=== PATIENT | female | born 1985 | race Caucasian/White ===

== ENCOUNTER 2017-12-04 19:22 | Emergency (ER) | payer BC ==
--- NOTE | 2017-12-04 20:03 | ED Physician Chart ---
ED Chief Complaint/HPI - Patient Information Date Seen:: 12/04/17 Time Seen:: 20:03 Chief Complaint:: Nausea, vomiting History of Present Illness:: 32 yo female , at gestation 6 weeks, LMP 10/22/17. Patient went to see PCP last week further confirmed positive . Patient developed nausea, vomiting and diarrhea for 3 days. Patient denied abdominal pain. Patient has anxiety on Prozac 10mg qd. Patient will have an appointment with [facility] in 1 week. Allergies:: Allergies Allergy/AdvReac Type Severity Reaction Status Date / Time No Known Allergies Allergy Verified 12/04/17 19:38 Vitals:: Vital Signs - 8 hr 12/04/17 19:30 Temp 98.8 F HR 83 RR 18 BP 114/72 O2 Sat % 97 ED Review of Systems - Review of Systems General/Constitutional: No fever, No chills Skin: No skin lesions Head: Headache Eyes: No pain Neck: No neck pain Cardio Vascular: No chest pain Pulmonary: No SOB GI: Nausea, Vomiting, Other (heart burn) [facility]: No vaginal discharge, No abnormal vaginal bleed Musculoskeletal: No bone or joint pain Psychiatric: Anxiety Neurological: No focal symptoms ED Past Medical History - Past Medical History Past Medical History: No significant medical hx Social History: Non Smoker, No Alcohol, No Drug Use Surgical History: None Psychiatricy History: Other (Anxiety) Family Medical History - Family Member Mother Ethnicity: Non- Living Status: Still Living Other Medical History: SKIN CANCER ED Physical Exam - Physical Examination General/Constitutional: Awake, Alert Head: Atraumatic Eyes: PERRL Skin: No ecchymosis ENMT: Nasal exam nl Neck: No nuchal rigidity Respiratory: No Wheeze/Rhonchi/Rales Cardio Vascular: RRR, No murmur, gallop, rubs, NL S1 S2 GI: No tenderness/rebounding/guarding Extremities: normal strength in all extremities Neuro/Psych: No focal deficits ED Labs/Radiology/EKG Results - Lab Results Results: Laboratory Last Values WBC 11.1 Th/cmm (4.8-10.8) H 12/04/17 20:25 RBC 4.97 Mil/cmm (3.80-5.10) 12/04/17 20:25 Hgb 14.7 gm/dL (12-16) 12/04/17 20:25 Hct 43.3 % (41.0-60) 12/04/17 20:25 MCV 87.0 fl (81-100) 12/04/17 20:25 MCH 29.5 pg (27.0-31.0) 12/04/17 20:25 MCHC Differential 33.9 pg (28.0-36.0) 12/04/17 20:25 RDW 13.2 % (11.5-20.0) 12/04/17 20:25 Plt Count 374 Th/cmm (150-400) 12/04/17 20:25 MPV 7.2 fl 12/04/17 20:25 Neutrophils % 76.9 % (40.0-80.0) 12/04/17 20:25 Lymphocytes % 16.7 % (20.0-50.0) L 12/04/17 20:25 Monocytes % 5.7 % (2.0-10.0) 12/04/17 20:25 Eosinophils % 0.4 % (0.0-5.0) 12/04/17 20:25 Basophils % 0.3 % (0.0-2.0) 12/04/17 20:25 Sodium 136 mEq/L (136-145) 12/04/17 20:25 Potassium 3.5 mEq/L (3.5-5.1) 12/04/17 20:25 Chloride 103 mEq/L (98-107) 12/04/17 20:25 Carbon Dioxide 26.0 mEq/L (21.0-31.0) 12/04/17 20:25 Anion Gap 10.5 (7.0-16.0) 12/04/17 20:25 BUN 9 mg/dL (7-25) 12/04/17 20:25 Creatinine 0.7 mg/dL (0.6-1.2) 12/04/17 20:25 Est GFR ( Amer) > 60.0 ml/min (>90) 12/04/17 20:25 Est GFR (Non-Af Amer) > 60.0 ml/min 12/04/17 20:25 BUN/Creatinine Ratio 12.9 12/04/17 20:25 Glucose 110 mg/dL (70-105) H 12/04/17 20:25 Calcium 9.4 mg/dL (8.6-10.3) 12/04/17 20:25 Total Bilirubin 0.3 mg/dL (0.3-1.0) 12/04/17 20:25 AST 21 U/L (13-39) 12/04/17 20:25 ALT 28 U/L (7-52) 12/04/17 20:25 Alkaline Phosphatase 102 U/L (34-104) 12/04/17 20:25 Total Protein 7.4 gm/dL (6.0-8.3) 12/04/17 20:25 Albumin 4.3 gm/dL (3.7-5.3) 12/04/17 20:25 Globulin 3.1 gm/dL 12/04/17 20:25 Albumin/Globulin Ratio 1.4 (1.0-1.8) 12/04/17 20:25 Beta HCG, Quant 20550 mIU/mL (0-0) H* 12/04/17 20:25 Urine Source RANDOM 12/04/17 19:45 Urine Color YELLOW 12/04/17 19:45 Urine Clarity CLEAR (CLEAR) 12/04/17 19:45 Urine pH 6.0 (4.6 - 8.0) 12/04/17 19:45 Ur Specific [place] <= 1.005 (1.005-1.030) 12/04/17 19:45 Urine Protein NEGATIVE mg/dL (NEGATIVE) 12/04/17 19:45 Urine Glucose (UA) NEGATIVE mg/dL (NEGATIVE) 12/04/17 19:45 Urine Ketones NEGATIVE mg/dL (NEGATIVE) 12/04/17 19:45 Urine Blood NEGATIVE (NEGATIVE) 12/04/17 19:45 Urine Nitrate NEGATIVE (NEGATIVE) 12/04/17 19:45 Urine Bilirubin NEGATIVE (NEGATIVE) 12/04/17 19:45 Urine Urobilinogen 0.2 E.U./dL (0.2 - 1.0) 12/04/17 19:45 Ur Leukocyte Esterase NEGATIVE (NEGATIVE) 12/04/17 19:45 Urine RBC 0-2 /hpf (0-5) 12/04/17 19:45 Urine WBC 2-5 /hpf (0-5) 12/04/17 19:45 Ur Epithelial Cells MODERATE /lpf (FEW) 12/04/17 19:45 Urine Bacteria FEW /hpf (NONE SEEN) 12/04/17 19:45 ED Assessment - Assessment General Assessment: Hyperemesis gravidarum Gestation, first trimester Anxiety Assessment/Comments:: CBC, CMP, hCG Reglan 5mg IV NS 1L IV bolus KCL 40mEq po D/c home Reglan 10mg po qd prn for N/V #10 F/u [facility] or PCP, return to ER if symptoms worsen ED Septic Shock - . Is Septic Shock (SBP<90, OR Lactate>4 mmol\L) present?: No - <6hrs of presentation: Vital Signs: Vital Signs - 8 hr 12/04/17 19:30 Temp 98.8 F HR 83 RR 18 BP 114/72 O2 Sat % 97 ED Reassessment (Disposition) - Reassessment Reassessment Condition:: Improved - Patient Disposition Discharge/Transfer:: Home
[2017-12-04] MEDS ORDERED: Metoclopramide 5 mg/mL 2mL Vial IVP STA (20:14)
[2017-12-04 20:44] LABS: % BASOPHILS 0.3 % (0.0-2.0); % EOSINOPHILS 0.4 % (0.0-5.0); % LYMPHOCYTES 16.7 % (20.0-50.0); % MONOCYTES 5.7 % (2.0-10.0); % NEUTROPHILS 76.9 % (40.0-80.0); HEMATOCRIT 43.3 % (41.0-60); HEMOGLOBIN 14.7 gm/dL (12-16); LYMPHOCYTE ABSOLUTE 1.9 Th/cmm (1.5-3.0); MEAN CORPUSCULAR HEMOGLOBIN 29.5 pg (27.0-31.0); MEAN CORPUSCULAR HGB CONC 33.9 pg (28.0-36.0); MEAN PLATELET VOLUME 7.2 fl; MONOCYTE ABSOLUTE 0.6 Th/cmm (0.3-1.0); NEUTROPHILE ABSOLUTE 8.6 Th/cmm (1.8-8.0); PLATELET COUNT 374 Th/cmm (150-400); RED BLOOD COUNT 4.97 Mil/cmm (3.80-5.10); RED CELL DISTRIBUTION WIDTH 13.2 % (11.5-20.0); WHITE BLOOD COUNT 11.1 Th/cmm (4.8-10.8)
[2017-12-04 20:53] LABS: URINE BILIRUBIN NEGATIVE (NEGATIVE); URINE BLOOD NEGATIVE (NEGATIVE); URINE GLUCOSE (UA) NEGATIVE (NEGATIVE); URINE KETONE NEGATIVE (NEGATIVE); URINE LEUKOCYTE ESTERASE NEGATIVE (NEGATIVE); URINE NITRATE NEGATIVE (NEGATIVE); URINE PROTEIN NEGATIVE (NEGATIVE); URINE SOURCE RANDOM; URINE UROBILINOGEN 0.2 E.U./dL (0.2 - 1.0)
[2017-12-04 20:54] LABS: URINE CLARITY CLEAR (CLEAR); URINE COLOR YELLOW; URINE MICROSCOPIC INDICATED? YES
[2017-12-04 20:58] LABS: ALB/GLOB RATIO 1.4 (1.0-1.8); ALBUMIN 4.3 gm/dL (3.7-5.3); ALKALINE PHOSPHATASE 102 U/L (34-104); ANION GAP 10.5 (7.0-16.0); BILIRUBIN,TOTAL 0.3 mg/dL (0.3-1.0); BUN - UREA NITROGEN 9 mg/dL (7-25); CALCIUM SERUM 9.4 mg/dL (8.6-10.3); CHLORIDE 103 mEq/L (98-107); CREATININE - SERUM 0.7 mg/dL (0.6-1.2); GFR AFRICAN-AMERICAN > 60.0 ml/min (>90); GFR NON AFRICAN-AMERICAN > 60.0 ml/min; GLUCOSE 110 mg/dL (70-105); POTASSIUM SERUM 3.5 mEq/L (3.5-5.1); SGOT 21 U/L (13-39); SGPT/ALT 28 U/L (7-52); SODIUM SERUM 136 mEq/L (136-145); TOTAL PROTEIN,SERUM 7.4 gm/dL (6.0-8.3)
[2017-12-04 20:58] LABS: URINE BACTERIA FEW /hpf (NONE SEEN); URINE EPITHELIAL CELLS MODERATE /lpf (FEW); URINE RBC 0-2 /hpf (0-5)
[2017-12-04] MEDS ORDERED: Metoclopramide 5 mg/mL 2mL Vial ONE (21:00)
[2017-12-04] MEDS ORDERED: Sodium Chloride 0.9% 1,000 ML IV ONE (21:36)
[2017-12-04] MEDS ORDERED: Potassium Chloride 20 mEq ER Tab PO ONE ×2 (21:36→21:53)
[2017-12-04 22:29] LABS: HCG QUANT 12577 mIU/mL (0-0)
== END 2017-12-04 23:00 | disposition home or self-care (01) ==
LOC: ER 19:22
DX: O21.0 Mild hyperemesis gravidarum (principal); R19.7 Diarrhea, unspecified; F41.9 Anxiety disorder, unspecified; Z3A.01 Less than 8 weeks gestation of pregnancy
CPT/HCPCS: 99284; 96374; 36415; 84702; 85025; 81001; 80053; J2765; J7030; Z7502